=== PATIENT | female | born 1950 | race Two or more races ===

== ENCOUNTER 2024-12-15 14:10 | Emergency (ER) | payer OTHER, SELFPAY ==
[2024-12-15 14:24] VITALS: BP 127/76; PULSE 106; RESP 20; TEMP 36.7; O2SAT 95
--- NOTE | 2024-12-15 14:27 | XR_ITS ---
Examination: PA chest with bilateral ribs 5 views TECHNIQUE: Upright PA chest, LUNDBERG MATHEW right and left RIBS, 5 views Date and time: December 15, 2024 1450 hours INDICATIONS: Bilateral rib pain beginning 2.5 weeks ago. FINDINGS: Normal heart size Significant parenchymal disease right base with moderate right pleural effusion Nodular density in the right upper lobe 23 mm Pleural thickening along the upper lateral right thoracic wall No pulmonary edema Prominent osteopenia No acute rib fractures IMPRESSION: Right base pneumonia Moderate right pleural fluid 23 mm nodule in the right upper lobe, consider CT chest without contrast follow-up
--- NOTE | 2024-12-15 14:27 | XR_ITS ---
Examination: Lumbar spine 3 views Technique one AP lateral coned lateral lower lumbar spine 3 views Date and time: December 15, 2024 1502 hours INDICATIONS: Lower back pain beginning 2.5 weeks ago. FINDINGS: Severe osteopenia No lumbar fracture Diffuse lumbar disc narrowing, advanced L5-S1 Grade 2 anterolisthesis L5 on S1 although no definite pars defects IMPRESSION: Advanced degenerative disc disease L5-S1
--- NOTE | 2024-12-15 15:12 | PD.EDRME ---
Rapid Medical Screening Exam RME Arrival date/time: 12/15/24 14:10 This is a case of 74-year-old female who came in in the emergency room due to abdominal pain lower back pain and left rib pain for 14 days denies any injury or trauma Chief Complaint: General Adult/Misc Complain Time Seen by Provider: 12/15/24 14:23 Vital signs: Vital Signs Temperature 98.0 F 12/15/24 14:24 Pulse Rate 106 H 12/15/24 14:24 Respiratory Rate 20 12/15/24 14:24 Blood Pressure 127/76 12/15/24 14:24 Pulse Oximetry (%) 95 12/15/24 14:24 Oxygen Delivery Method Room Air 12/15/24 14:24
[2024-12-15 15:43] LABS: Basophils % (Auto) 0 % (0-2.5); Eosinophils % (Auto) 0 % (0-10); Hematocrit 38.4 % (36.0-46.0); Hemoglobin 13.2 g/dL (12.0-16.0); Immature Granulocytes % (Auto) 3 % (0-0); Immature Granulocytes Auto 0.37 Thou/mm3 (0.00-0.00); Lymphocytes # (Auto) 1.9 Thou/mm3 (1.0-4.8); Lymphocytes % (Auto) 15 % (10-50); Mean Corpuscular HGB Conc 34.4 g/dl (31.0-37.0); Mean Corpuscular Volume 81 fL (80-100); Monocytes # (Auto) 0.6 Thou/mm3 (0.0-0.8); Monocytes % (Auto) 5 % (0-12); Neutrophils # (Auto) 10.1 Thou/mm3 (1.8-7.7); Neutrophils % (Auto) 77 % (37-80); Nucleated Red Blood Cell % 0 /100 WBC (0); Platelet Count 269 Thou/mm3 (140-440); RDW Standard Deviation 40.2 fL (36.4-46.3); Red Blood Count 4.72 Miln/mm3 (4.00-5.20)
[2024-12-15 16:03] LABS: Alanine Aminotransferase 14 U/L (10-49); Albumin, Serum 4.4 gm/dL (3.4-4.8); Albumin/Globulin Ratio 1.6 (1.2-2.2); Alkaline Phosphatase 81 U/L (46-116); Anion Gap 13 (7-16); Aspartate Amino Transferase 44 U/L (0-34); BUN/Creatinine Ratio 25 Ratio (12-20); Bilirubin,Total 0.6 mg/dL (0.3-1.2); Blood Urea Nitrogen 20 mg/dL (9-23); Calcium 10.6 mg/dL (8.3-10.6); Calcium (Corrected) 10.6 mg/dL (8.5-10.1); Carbon Dioxide 23.7 mMol/L (20.0-31.0); Chloride 101 mMol/L (98-107); Creatinine (Component) 0.8 mg/dL (0.6-1.3); Globulin 2.8 gm/dL (2.3-3.5); Glucose 116 mg/dL (74-106); Lipase 23 U/L (12-53); Osmolality,Calculated 279 (275-295); Potassium 4.4 mMol/L (3.4-5.1); Sodium 138 mMol/L (136-145); Total Protein 7.2 gm/dL (5.7-8.2); eGFR > 60 See Note
[2024-12-15 18:23] VITALS: BP 155/71; PULSE 94; RESP 19; O2SAT 94
[2024-12-15 18:27] LABS: Collection Type, Urine Clean Catch
[2024-12-15 18:44] LABS: Bilirubin,Urine Negative (Negative); Blood,Urine Negative (Negative); Clarity,Urine Turbid (Clear/Hazy); Color,Urine Yellow (Lt Yel-Yel); Glucose, Urine Negative (Negative); Hyaline Casts,Urine < 1 /hpf (0-1); Ketones,Urine 1+ (Negative); Leukocyte Esterase,Urine Positive (Negative); Nitrite,Urine Negative (Negative); PH,Urine 5.5 (5.0-7.0); Protein,Urine Trace (Neg - Trace); RBC,Urine 1 /hpf (0-3); Specific Gravity,Urine 1.027 (1.001-1.035); Squamous Epithelial Cell,Urine 24 /hpf (0-5); Urobilinogen,Urine Negative mg/dL (0.0-1.0); WBC,Urine 43 /hpf (0-5)
[2024-12-15 18:56] VITALS: BP 155/71; PULSE 94; RESP 17; TEMP 36.7; O2SAT 94
--- NOTE | 2024-12-15 19:00 | EDNOTE_ITS ---
ED Abdominal Pain RME/HPI General Chief Complaint: General Adult/Misc Complain Stated complaint: Constipation X 14 days Time seen by provider: 12/15/24 14:23 Arrival date/time: 12/15/24 14:10 RME / HPI RME / HPI narrative: 12/15/24 14:10 This is a case of 74-year-old female who came in in the emergency room due to abdominal pain lower back pain and left rib pain for 14 days denies any injury or trauma DR ARREOLA MAIN ED EVALUATION: 74 y/o female presents to ED c/o constipation and upper abdominal pain x over 14 days. Patient was seen and treated for BL sciatica and lower back pain with pain medications. She has tried multiple medications for constipation management, both OTC and prescription, with no relief. Patient denies fever or any other associated symptoms or aggravating factors. No modifying factors, no radiation, no migration. No pain reported overall. Related Data Allergies Allergy/AdvReac Type Severity Reaction Status Date / Time No Known Allergies Allergy Verified 12/15/24 14:16 Review of Systems Review of Systems Systems Reviewed: All systems reviewed, normal except as documented Past Medical History Past Medical History CARDIAC: Positive Hypertension Social History SMOKING STATUS: Current every day smoker ED Exam Narrative Physical exam: GENERAL APPEARANCE: alert and oriented x 4, well-developed, well-nourished, no acute distress VITALS: All vitals were reviewed and the pulse ox is 94% on room air, which is normal according to my interpretation. HEENT: Normocephalic, atraumatic; pupils equal, round, reactive to light; EOMI; mucous membranes pink, moist; oropharynx clear NECK: Supple LUNGS: CTABL; no wheezes, no rales, no rhonchi HEART: Regular rate, regular rhythm; normal S1, S2; no murmurs ABDOMEN: mild abdominal distended; normal BS; soft, mild diffused tenderness, no guarding, no rebound; no masses, no organomegaly, no hernia BACK: no CVA tenderness EXTREMITIES: atraumatic; no edema NEUROLOGIC: awake; alert and oriented x4; cranial nerves II-XII grossly intact; no focal sensory or motor deficits PSYCHIATRIC: appropriate mood and affect SKIN: warm, dry, normal color; no rashes Course Quality Measures none Orders Category Date Time Status CT abdomen pelvis wo con Stat Exams 12/15/24 22:[address] chest wo con Stat Exams 12/15/24 22:35 Taken XR abdomen flat and uprght Stat Exams 12/15/24 18:59 Completed XR lumbar spine 2-3V Stat Exams 12/15/24 14:27 Completed XR ribs BI 3V Stat Exams 12/15/24 14:27 Completed CBC Stat Lab 12/15/24 15:25 Completed Comprehensive Metabolic Panel Stat Lab 12/15/24 15:25 Completed Lipase Stat Lab 12/15/24 15:25 Completed Urinalysis Stat Lab 12/15/24 18:13 Completed Ketorolac Inj [Toradol Inj] Med 12/15/24 20:12 Discontinued 30 mg IM X1 ONE Magnesium Citrate Liqd [Citrate of Magnesia Liqd] Med 12/15/24 20:10 Discontinued 300 ml PO X1 ONE Magnesium Citrate Liqd [Citrate of Magnesia Liqd] Med 12/15/24 21:31 Discontinued 300 ml PO X1 ONE Reevaluation(s) Reevaluation #1: Patient is feeling fine but was wanting an update. She has finished first bottle of magnesium citrate, but has not had a bowel movement yet. Time: 22:31 Vital Signs Vital signs: Vital Signs Temperature 98.0 F 12/15/24 14:24 Pulse Rate 106 H 12/15/24 14:24 Respiratory Rate 20 12/15/24 14:24 Blood Pressure 127/76 12/15/24 14:24 Pulse Oximetry (%) 95 12/15/24 14:24 Oxygen Delivery Method Room Air 12/15/24 14:24 Abdominal Pain MDM MDM Narrative MDM Narrative:: Scribe Attestation: IStella, tapan scribing for and in the presence of Dr. Arreola. Provider Notation: Although this document has been carefully reviewed, there may still be some phonetic and other typographical errors.? These errors are purely grammatical due to imperfections in the software program and should not be construed in any way to? compromise the substance of the patient's medical care during this visit. Patient data External records reviewed:: [facility] previous records (No prior ED records available for review.) Clinical information provided by:: patient Social determinants that could affect healthcare access:: none Patient has the following chronic illnesses:: HTN How is presenting disease/condition affected by chronic disease/condition?: uneffected by Evaluation data The following diagnostics were reviewed and interpreted by me:: lab results and radiology exam(s) Lab and/or radiology exams considered but not ordered:: None Interpretation Summary: RADIOLOGY Ribs X-Ray: Patient: JOSE FLORES. Record#: [id number] Birthdate: 1950 Age/Sex: 74 / F Location: [facility] Attending Dr: Ordering Physician: Phyllis Jacobsen Date of Service: 12/15/24 Procedure(s): XR ribs BI 3V Accession Number(s): [id number] cc: Elio Woods MD; NO PRIMARY/FAMILY,PHYSICIAN; Phyllis Jacobsen~ Examination: PA chest with bilateral ribs 5 views TECHNIQUE: Upright PA chest, LUNDBERG MATHEW right and left RIBS, 5 views Date and time: December 15, 2024 1450 hours INDICATIONS: Bilateral rib pain beginning 2.5 weeks ago. FINDINGS: Normal heart size Significant parenchymal disease right base with moderate right pleural effusion Nodular density in the right upper lobe 23 mm Pleural thickening along the upper lateral right thoracic wall No pulmonary edema Prominent osteopenia No acute rib fractures IMPRESSION: Right base pneumonia Moderate right pleural fluid 23 mm nodule in the right upper lobe, consider CT chest without contrast follow-up Dictated By: Elio Woods MD Signed By: <Electronically signed by Elio Woods MD in OV> 12/15/24 1529 L-spine X-Ray: Patient: JOSE FLORES [facility]. Record#: [id number] Birthdate: 1950 Age/Sex: 74 / F Location: [facility] Attending Dr: Ordering Physician: Phyllis Jacobsen Date of Service: 12/15/24 Procedure(s): XR lumbar spine 2-3V Accession Number(s): [id number] cc: Elio Woods MD; NO PRIMARY/FAMILY,PHYSICIAN; Phyllis Jacobsen~ Examination: Lumbar spine 3 views Technique one AP lateral coned lateral lower lumbar spine 3 views Date and time: December 15, 2024 1502 hours INDICATIONS: Lower back pain beginning 2.5 weeks ago. FINDINGS: Severe osteopenia No lumbar fracture Diffuse lumbar disc narrowing, advanced L5-S1 Grade 2 anterolisthesis L5 on S1 although no definite pars defects IMPRESSION: Advanced degenerative disc disease L5-S1 Dictated By: Elio Woods MD Signed By: <Electronically signed by Elio Woods MD in OV> 12/15/24 1527 Abdomen X-Ray: Patient: JOES FLORES. Record#: [id number] Birthdate: 1950 Age/Sex: 74 / F Location: [facility] Attending Dr: Ordering Physician: Zulema Arreola MD Date of Service: 12/15/24 Procedure(s): XR abdomen flat and uprght Accession Number(s): [id number] cc: Elio Woods MD; NO PRIMARY/FAMILY,PHYSICIAN; Zulema Arreola MD~ Examination: Abdomen 2 views TECHNIQUE: AP supine AP upright abdomen 2 views Date and time: December 21, 2024 1934 hours INDICATIONS: Constipation beginning 4 days ago. FINDINGS: Moderate to large amount of stool throughout the colon Minimal small bowel ileus. No obstruction No free air IMPRESSION: Moderate to large amounts of stool throughout the colon Dictated By: Elio Woods MD Signed By: <Electronically signed by Elio Woods MD in OV> 12/15/241957 Chest CT: Prelim Report CT scan of the chest without intravenous contrast (axial sections with sagittal and coronal reformats) December 16, 2024 0112 hours Clinical History: Pain Comparison: No prior study is available for comparison. Findings: Right apical lung nodule/pleural thickening, measuring 4.0 x 2.0 cm. Moderate right pleural effusion. Multiple foci of thickening of the right pleura. Right upper lobe lesion measuring 3.4 cm. Right lower lobe consolidation. No pneumothorax. The mediastinum demonstrates no evidence of mass or lymphadenopathy. The thoracic aorta is unremarkable. There is no pericardial effusion. Degenerative changes of the imaged portions of the spine. Chronic multilevel disc disease. No acute fractures. Vascular calcifications. Please, see separate report for description of the abdominal findings. Coronary arteries calcifications. Impression: 1. Right upper lobe nodule, likely neoplastic in etiology. 2. Right thickening associated with pleural effusion, probably cancer. 3. Coronary arteries calcifications. 4. Right upper lobe nodule and pleural thickening. Differential grossly includes lung cancer and Pancoast tumor. Abdomen/Pelvis CT: Prelim Report CT scan of the abdomen and pelvis without intravenous contrast (axial sections with sagittal and coronal reformats) December 16, 2024 at 0112 hours Clinical history: Pain Comparison: No prior study is available for comparison. Findings: The lung bases are clear. The liver, pancreas, spleen and kidneys are unremarkable on this noncontrast study. Prominent right adrenal gland. Unremarkable the left adrenal. No evidence of bowel obstruction. No evidence of appendicitis. Gallstones without evidence of acute cholecystitis. There is no mesenteric or retroperitoneal adenopathy. The urinary bladder is unremarkable. There is no free fluid or free air. Degenerative changes of the imaged portions of the spine. Chronic multilevel disc disease. Mild anterior listhesis of L5. Probable acute compression fracture of the superior endplate of L5. Lytic lesion in the body of the sacrum. Vascular calcifications. Status post hysterectomy. Impression: 1. 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 2. Probable acute compression fracture of the superior endplate of L5. Correlation with MRI is recommended. 3. Prominent right adrenal gland, metastatic disease cannot be excluded. Medications / Prescriptions Medications or Prescriptions considered but not ordered:: None Medication administrations:: Medication Administration History Discontinued Medications Ketorolac Tromethamine (Ketorolac Inj 30 Mg/Ml Vial) 30 mg IM X1 ONE Stop: 12/15/24 20:13 Last Admin: 12/15/24 20:46 Dose: 30 mg Documented By: DB Magnesium Citrate (Magnesium Citrate 300 Ml Btl) 300 ml PO X1 ONE Stop: 12/15/24 20:11 Last Admin: 12/15/24 20:47 Dose: 300 ml Documented By: DB Magnesium Citrate (Magnesium Citrate 300 Ml Btl) 300 ml PO X1 ONE Stop: 12/15/24 21:32 Last Admin: 12/15/24 23:23 Dose: 300 ml Documented By: CVL See above if any. Consultations Consultation(s) initiated? (list below): No Diagnosis Differential diagnosis abdominal pain: abdominal pain, acute appendicitis, constipation, diverticulitis, gastroenteritis, pancreatitis and small bowel obstruction Most likely diagnosis given after review of the tests above:: Constipation Admission Indicated Admission indicated?: not indicated Explain why admission is indicated or not indicated:: Pending official CT report. Signed-out to Dr. Forrester. Admission Request Was there a request for admission?: No Disposition Plan Disposition Plan: other (specify) (Sign-out to Dr. Forrester at 6 AM.) Discharge Plan Plan Patient Disposition: HOME (Self Care) Prescriptions/Referrals Referrals: No Primary/Family,Physician [Primary Care Provider] - In 1 week Problem List Clinical Impression: Constipation Patient/Caregiver Discharge Instructions Education Materials: ED Constipation (Adult) Print Language: Grenadian Stand Alone Forms: Eva Award Info., Patient Portal Info Letter
[2024-12-15] MEDS: KETOROLAC INJ 30 MG/ML VIAL IM (20:46)
[2024-12-15] MEDS: MAGNESIUM CITRATE 300 ML BTL PO ×2 (20:47→23:23)
--- NOTE | 2024-12-15 22:35 | XR_ITS ---
Examination: CT chest, without intravenous contrast. Sagittal and coronal 2-D reconstructions. Exam date and time: December 16, 2024 0112 hours INDICATIONS: Abdominal pain this week CTDI:vol (mGy) 8.9 DLP: (mGycm) 1049 Technique: Multiple 3.0 mm axial sections of the chest to been obtained. Bone and lung density settings are obtained. Sagittal and coronal 2-D reconstructions have been obtained. Low dose protocols were performed. One or more of the following dose reduction techniques were used; automated exposure control, adjustment of the mA and/or KV according to patient size, use of iterative reconstruction technique. Findings: Thoracic aortic calcification no aneurysmal dilatation Pulmonary artery segments mildly enlarged No paratracheal tracheobronchial or bronchopulmonary adenopathy 20 mm pulmonary mass spiculated margins right upper lobe Abnormal nodular pleural thickening right hemithorax Pulmonary mass right upper lobe spiculated margins 40 mm Mild to moderate right pleural fluid, likely malignant Pneumonia right base Poorly defined subcarinal lymphadenopathy on this noncontrast study Small lymph nodes adjacent to the descending thoracic aorta No focal liver or splenic lesions Gallstones No pancreatic mass Nodular thickening both adrenal glands 2 mm right renal calculus Severe osteopenia IMPRESSION: Pulmonary masses right lung as above with nodular thickening of the pleura right hemithorax, highest on the differential list lung cancer including metastatic disease Pneumonia right base Small to moderate likely malignant right pleural effusion
--- NOTE | 2024-12-15 22:36 | XR_ITS ---
Examination: CT abdomen and pelvis without contrast. Coronal 3-D reconstructions. Sagittal 2-D reconstructions. Date and time of exam:December 16, 2024 0112 hours INDICATIONS: Severe generalized abdominal pain today CTDI: vol (mGy): 8.9 DLP: (mGycm): 1049 Technique: Axial images of the abdomen have been obtained, 3 mm slice thickness Intravenous contrast material has not been administered. Low dose protocols were performed. One or more of the following dose reduction techniques were used; automated exposure control, adjustment of the mA and/or KV according to patient size, use of iterative reconstruction technique. Findings: Please see the CT chest report please see the CT chest report No focal liver or splenic lesions Gallstones No pancreatic mass 1 to 2 mm bilateral renal calculi Nodular thickening both adrenal glands Heavy abdominal aortic calcification No bowel obstruction Normal appendix No diverticulitis Extensive osteolytic bone destruction involving the sacrum more on the right side axial image 307 Bone destruction posterior left iliac bone image 299 Bone destruction lateral margin L2 on the right and anterior margin L5 IMPRESSION: Nodular thickening both adrenal glands Widespread osseous metastatic disease as above, consider MRI cervical thoracic and lumbar spine post intravenous contrast follow-up
[2024-12-15 23:15] VITALS: BP 126/59; PULSE 83; RESP 16; O2SAT 97
[2024-12-16 05:51] VITALS: BP 162/81; PULSE 89; RESP 16; TEMP 36.4; O2SAT 93
--- NOTE | 2024-12-16 06:29 | EDNOTE_ITS ---
Emergency Room Addendum Addendum Narrative: 0600: Care assumed from Dr. Arreola, the previous shift emergency physician. Past medical, surgical, social and family history reviewed. Vitals and home medications reviewed. I will assume the care of the patient at this time, pending diagnostic tests and final disposition. Please refer to the emergency department record for history and examination from initial visit.? Patient states that at 230 AM she had a large bowel movement and her symptoms resolved. No daily medications and no history reported. Physical exam by me shows patient under no acute distress at this time. Patient remains clinically stable throughout the emergency department visit. Re-assessment at the time of disposition demonstrates that the patient is in no acute distress. We reviewed all the results, analysis, and treatment plans. Patient is amenable to discharge. Strict return precautions were outlined. Patient was discharged in stable condition. Diagnoses: -Constipation -Lung mass Results Objective Laboratory: Laboratory Last Values WBC 13.0 Thou/mm3 (3.6-11.0) H 12/15/24 15:25 RBC 4.72 Miln/mm3 (4.00-5.20) 12/15/24 15:25 Hgb 13.2 g/dL (12.0-16.0) 12/15/24 15:25 Hct 38.4 % (36.0-46.0) 12/15/24 15:25 MCV 81 fL (80-100) 12/15/24 15:25 MCH 28.0 pg (25.0-35.0) 12/15/24 15: MCHC 34.4 g/dl (31.0-37.0) 12/15/24 15:25 RDW Std Deviation 40.2 fL (36.4-46.3) 12/15/24 15:25 Plt Count 269 Thou/mm3 (140-440) 12/15/24 15:25 Neut % (Auto) 77 % (37-80) 12/15/24 15:25 Lymph % (Auto) 15 % (10-50) 12/15/24 15:25 [place] % (Auto) 5 % (0-12) 12/15/24 15:25 Eos % (Auto) 0 % (0-10) 12/15/24:25 Baso % (Auto) 0 % (0-2.5) 12/15/24:25 Neut # (Auto) 10.1 Thou/mm3 (1.8-7.7) H 12/15/24 15:25 Lymph # (Auto) 1.9 Thou/mm3 (1.0-4.8) 12/15/24 15:25 [place] # (Auto) 0.6 Thou/mm3 (0.0-0.8) 12/15/24 15:25 Eos # (Auto) 0.0 Thou/mm3 (0.0-0.5) 12/15/24 15:25 Baso # (Auto) 0.0 Thou/mm3 (0.0-0.2) 12/15/24 15:25 Immature Gran # (Auto) 0.37 Thou/mm3 (0.00-0.00) H 12/15/24 15:25 Absolute Nucleated RBC 0.00 Thou/mm3 (0.00-0.00) 12/15/24 15:25 Immature Gran % 3 % (0-0) H 12/15/24 15:25 Nucleated RBC % 0 /100 WBC (0) 12/15/24 15:25 Sodium 138 mMol/L (136-145) 12/15/24 15:25 Potassium 4.4 mMol/L (3.4-5.1) 12/15/24 15:25 Chloride 101 mMol/L (98-107) 12/15/24 15:25 Carbon Dioxide 23.7 mMol/L (20.0-31.0) 12/15/24 15:25 Anion Gap 13 (7-16) 12/15/24 15:25 BUN 20 mg/dL (9-23) 12/15/24 15:25 Creatinine 0.8 mg/dL (0.6-1.3) 12/15/24 15:25 Estim Creat Clear Calc Not Performed. 12/15/24 15:25 eGFR > 60 See Note (60-) 12/15/24 15:25 BUN/Creatinine Ratio 25 Ratio (12-20) H 12/15/24 15:25 Glucose 116 mg/dL (74-106) H 12/15/24 15:25 Calculated Osmolality 279 (275-295) 12/15/24 15:25 Calcium 10.6 mg/dL (8.3-10.6) 12/15/24 15:25 Corrected Calcium 10.6 mg/dL (8.5-10.1) H 12/15/24 15:25 Total Bilirubin 0.6 mg/dL (0.3-1.2) 12/15/24 15:25 AST 44 U/L (0-34) H 12/15/24 15:25 ALT 14 U/L (10-49) 12/15/24 15:25 Alkaline Phosphatase 81 U/L (46-116) 12/15/24 15: Total Protein 7.2 gm/dL (5.7-8.2) 12/15/24 15:25 Albumin 4.4 gm/dL (3.4-4.8) 12/15/24: Globulin 2.8 gm/dL (2.3-3.5) 12/15/24 15: Albumin/Globulin Ratio 1.6 (1.2-2.2) 12/15/24 15:25 Lipase 23 U/L (12-53) 12/15/24 15:25 Ur Collection Type Clean Catch 12/15/24 18:13 Urine Color Yellow (Lt Yel-Yel) 12/15/24 18:13 Urine Clarity Turbid (Clear/Hazy) A 12/15/24 18:13 Urine pH 5.5 (5.0-7.0) 12/15/24 18:13 Ur Specific [place] 1.027 (1.001-1.035) 12/15/24 18:13 Urine Protein Trace (Neg - Trace) 12/15/24 18:13 Urine Glucose (UA) Negative (Negative) 12/15/24 18:13 Urine Ketones 1+ (Negative) A 12/15/24 18:13 Urine Blood Negative (Negative) 12/15/24 18:13 Urine Nitrite Negative (Negative) 12/15/24 18:13 Urine Bilirubin Negative (Negative) 12/15/24 18:13 Urine Urobilinogen (Auto) Negative mg/dL (0.0-1.0) 12/15/24 18:13 Ur Leukocyte Esterase Positive (Negative) 12/15/24 18:13 Urine RBC 1 /hpf (0-3) 12/15/24 18:13 Urine WBC 43 /hpf (0-5) H 12/15/24 18:13 Ur Squamous Epith Cells 24 /hpf (0-5) H 12/15/24 18:13 Urine Bacteria None (None) 12/15/24 18:13 Hyaline Casts < 1 /hpf (0-1) 12/15/24 18:13 Imaging: Procedure(s): XR ribs BI 3V Accession Number(s): [id number] cc: Elio Woods MD; NO PRIMARY/FAMILY,PHYSICIAN; Phyllis JacobsenP~ Examination: PA chest with bilateral ribs 5 views TECHNIQUE: Upright PA chest, [place] right and left RIBS, 5 views Date and time: December 15, 2024 1450 hours INDICATIONS: Bilateral rib pain beginning 2.5 weeks ago. FINDINGS: Normal heart size Significant parenchymal disease right base with moderate right pleural effusion Nodular density in the right upper lobe 23 mm Pleural thickening along the upper lateral right thoracic wall No pulmonary edema Prominent osteopenia No acute rib fractures IMPRESSION: Right base pneumonia Moderate right pleural fluid 23 mm nodule in the right upper lobe, consider CT chest without contrast follow-up Dictated By: Elio Woods MD Procedure(s): XR lumbar spine 2-3V Accession Number(s): [id number] cc: Elio Woods MD; NO PRIMARY/FAMILY,PHYSICIAN; Phyllis Jacobsen~ Examination: Lumbar spine 3 views Technique one AP lateral coned lateral lower lumbar spine 3 views Date and time: December 15, 2024 1502 hours INDICATIONS: Lower back pain beginning 2.5 weeks ago. FINDINGS: Severe osteopenia No lumbar fracture Diffuse lumbar disc narrowing, advanced L5-S1 Grade 2 anterolisthesis L5 on S1 although no definite pars defects IMPRESSION: Advanced degenerative disc disease L5-S1 Dictated By: Elio Woods MD ------- Procedure(s): XR abdomen flat and uprght Accession Number(s): [id number] cc: Elio Woods MD; NO PRIMARY/FAMILY,PHYSICIAN; Zulema Arreola MD~ Examination: Abdomen 2 views TECHNIQUE: AP supine AP upright abdomen 2 views Date and time: December 21, 2024 1934 hours INDICATIONS: Constipation beginning 4 days ago. FINDINGS: Moderate to large amount of stool throughout the colon Minimal small bowel ileus. No obstruction No free air IMPRESSION: Moderate to large amounts of stool throughout the colon Dictated By: Elio Woods MD Procedure(s): CT chest wo con Accession Number(s): [id number] cc: Elio Woods MD; NO PRIMARY/FAMILY,PHYSICIAN; Zulmea Arreola MD~ Examination: CT chest, without intravenous contrast. Sagittal and coronal 2-D reconstructions. Exam date and time: December 16, 2024 0112 hours INDICATIONS: Abdominal pain this week CTDI:vol (mGy) 8.9 DLP: (mGycm) 1049 Technique: Multiple 3.0 mm axial sections of the chest to been obtained. Bone and lung density settings are obtained. Sagittal and coronal 2-D reconstructions have been obtained. Low dose protocols were performed. One or more of the following dose reduction techniques were used; automated exposure control, adjustment of the mA and/or KV according to patient size, use of iterative reconstruction technique. Findings: Thoracic aortic calcification no aneurysmal dilatation Pulmonary artery segments mildly enlarged No paratracheal tracheobronchial or bronchopulmonary adenopathy 20 mm pulmonary mass spiculated margins right upper lobe Abnormal nodular pleural thickening right hemithorax Pulmonary mass right upper lobe spiculated margins 40 mm Mild to moderate right pleural fluid, likely malignant Pneumonia right base Poorly defined subcarinal lymphadenopathy on this noncontrast study Small lymph nodes adjacent to the descending thoracic aorta No focal liver or splenic lesions Gallstones No pancreatic mass Nodular thickening both adrenal glands 2 mm right renal calculus Severe osteopenia IMPRESSION: Pulmonary masses right lung as above with nodular thickening of the pleura right hemithorax, highest on the differential list lung cancer including metastatic disease Pneumonia right base Small to moderate likely malignant right pleural effusion Dictated By: Elio Woods MD Procedure(s): CT abdomen pelvis wo [facility] Accession Number(s): [id number] cc: Elio Woods MD; NO PRIMARY/FAMILY,PHYSICIAN; Zulema Arreola MD~ Examination: CT abdomen and pelvis without contrast. Coronal 3-D reconstructions. Sagittal 2-D reconstructions. Date and time of exam:December 16, 2024 0112 hours INDICATIONS: Severe generalized abdominal pain today CTDI: vol (mGy): 8.9 DLP: (mGycm): 1049 Technique: Axial images of the abdomen have been obtained, 3 mm slice thickness Intravenous contrast material has not been administered. Low dose protocols were performed. One or more of the following dose reduction techniques were used; automated exposure control, adjustment of the mA and/or KV according to patient size, use of iterative reconstruction technique. Findings: Please see the CT chest report please see the CT chest report No focal liver or splenic lesions Gallstones No pancreatic mass 1 to 2 mm bilateral renal calculi Nodular thickening both adrenal glands Heavy abdominal aortic calcification No bowel obstruction Normal appendix No diverticulitis Extensive osteolytic bone destruction involving the sacrum more on the right side axial image 307 Bone destruction posterior left iliac bone image 299 Bone destruction lateral margin L2 on the right and anterior margin L5 IMPRESSION: Nodular thickening both adrenal glands Widespread osseous metastatic disease as above, consider MRI cervical thoracic and lumbar spine post intravenous contrast follow-up Dictated By: Elio Woods MD
[2024-12-16 07:22] VITALS: BP 129/67; PULSE 90; RESP 18; TEMP 36.6; O2SAT 95
[2024-12-16] MEDS: KETOROLAC INJ 60 MG/2 ML VIAL 30 MG IM (07:34)
[2024-12-16 09:28] VITALS: BP 136/67; PULSE 103; RESP 19; TEMP 36.8; O2SAT 96
--- NOTE | 2024-12-16 10:25 | PC.NURSE ---
PT RECEIVED DISC FOR CT & XRAY RESULTS AT THIS TIME
== END 2024-12-16 10:26 | disposition home or self-care (01) ==
PROVIDERS: Nurse Practitioner Family; Emergency Provider Emergency Medicine
DX: K59.00 Constipation, unspecified (principal); M51.17 Intervertebral disc disorders with radiculopathy, lumbosacral region; J18.9 Pneumonia, unspecified organism; R91.1 Solitary pulmonary nodule; J90 Pleural effusion, not elsewhere classified; C79.51 Secondary malignant neoplasm of bone; J92.9 Pleural plaque without asbestos; C79.71 Secondary malignant neoplasm of right adrenal gland; I25.10 Atherosclerotic heart disease of native coronary artery without angina pectoris; F17.210 Nicotine dependence, cigarettes, uncomplicated; I10 Essential (primary) hypertension; C80.1 Malignant (primary) neoplasm, unspecified
CPT/HCPCS: 36415; 71110; 71250; 72100; 74019; 74176; 80053; 81001; 83690; 85025; 96372; 99284; J1885; A9270